=== PATIENT | male | born 1950 | race Two or more races ===

== ENCOUNTER → 2023-07-27 07:20 | Outpatient (CLI) | payer OTHER | END | disposition home or self-care (01) | LOC: NUCLEAR 07:00 | PROVIDERS: ATTEND Specialist | DX: I50.22 Chronic systolic (congestive) heart failure (principal); I42.8 Other cardiomyopathies | CPT/HCPCS: 78452; 93017; A9500; J0153 ==

== ENCOUNTER 2023-08-11 12:26 | Outpatient (CLI) | payer OTHER | END 2023-08-11 12:29 | disposition home or self-care (01) | LOC: NUCLEAR 12:26 | PROVIDERS: ATTEND Specialist | DX: I50.22 Chronic systolic (congestive) heart failure (principal); I42.8 Other cardiomyopathies | CPT/HCPCS: 78472; A9560 ==